=== PATIENT | female | born 1980 ===

== ENCOUNTER 2018-03-30 04:36 | Inpatient (IN) | payer MEDICAID ==
--- NOTE | 2018-03-30 04:53 | C.PDOC ---
History Of Present Illness 37 year old female with PMHx of chronic alcoholism is brought to the ED c/o chest pain. Patient states her last drink was a few hours ago prior to arrival. Patient is also c/o 2 episodes of vomiting. Patient appears anxious, shaking while in the ED. Patient denies abdominal pain, SOB, palpitations, fever, chills , diarrhea, rash. Time Seen by Provider: 03/30/18 04:46 Chief Complaint (Nursing): Chest Pain History Per: Patient History/Exam Limitations: no limitations Onset/Duration Of Symptoms: Hrs Current Symptoms Are (Timing): Still Present Quality: "Pain" Modifying Factors: None Exacerbating Factors: None Alleviating Factors: None Recent travel outside of the [place]: No Additional History Per: Patient Past Medical History Reviewed: Historical Data, Nursing Documentation, Vital Signs Vital Signs: Last Vital Signs Temp 98.5 F 03/30/18 04:48 Pulse 104 H 03/30/18 06:52 Resp 20 03/30/18 06:52 BP 105/78 03/30/18 06:52 Pulse Ox 100 03/30/18 06:52 - Medical History PMH: No Chronic Diseases Surgical History: No Surg Hx Family History: States: Unknown Family Hx - Social History Hx Tobacco Use: No Hx Alcohol Use: No Hx Substance Use: No Review Of Systems Constitutional: Negative for: Fever, Chills Cardiovascular: Positive for: Chest Pain Respiratory: Negative for: Shortness of Breath Gastrointestinal: Positive for: Vomiting, Abdominal Pain. Negative for: Diarrhea Skin: Negative for: Rash Neurological: Negative for: Weakness, Numbness Physical Exam - Physical Exam Appears: Non-toxic, Chronically Ill (anxious, AOB) Skin: Normal Color, Warm, Dry Head: Atraumatic, Normacephalic Eye(s): bilateral: Normal Inspection Oral Mucosa: Moist Neck: Normal ROM, Supple Chest: Symmetrical Cardiovascular: Rhythm Regular Respiratory: Normal Breath Sounds, No Rales, No Rhonchi, No Wheezing Gastrointestinal/Abdominal: Soft, No Tenderness, No Guarding, No Rebound Extremity: Normal ROM, No Tenderness, No Swelling Neurological/Psych: Oriented x3, Normal Speech, Other (hand tremors) Gait: Steady ED Course And Treatment - Laboratory Results Result Diagrams: 03/30/18 05:19 03/30/18 05:19 ECG: Interpreted By Me ECG Rhythm: Sinus Tachycardia (108 ), Nonspecific Changes O2 Sat by Pulse Oximetry: 98 (ON RA) Pulse Ox Interpretation: Normal Progress Note: Plan: - EKG. - Labs. - CXR. - Ativan 1 mg IVP. Pt now no longer with chest pain, states i feel tired. alc 211- pending sobriety. - IV fluids. - Zofran 4 mg IVP Disposition - Disposition Referrals: Non [facility] Provider, [Primary Care Provider] - Disposition Time: 07:00 Condition: STABLE Forms: [employer] (Austrian) - Clinical Impression Clinical Impression: Chest pain, Alcohol abuse - PA / REHABILITATION PROGRAM COORDINATOR / Resident Statement MD/DO has reviewed & agrees with the documentation as recorded. - Scribe Statement The provider has reviewed the documentation as recorded by the Scribe Orlando Aguilar All medical record entries made by the Scribe were at my direction and personally dictated by me. I have reviewed the chart and agree that the record accurately reflects my personal performance of the history, physical exam, medical decision making, and the department course for this patient. I have also personally directed, reviewed, and agree with the discharge instructions and disposition. Physician Patient Turnover Patient Signed Over To: Aubree Jackson Handoff Comments: pending sobriety
[2018-03-30] MEDS ORDERED: Sodium Chloride 0.9% 1,000 ML IV ONE ×2 (05:15→09:17)
[2018-03-30 05:26] LABS: HEMOGLOBIN 11.3 g/dL (11.0-16.0); MONO # 0.5 K/uL (0.0-0.8); NRBC % 0.1 % (0.0-2.0)
[2018-03-30] MEDS ORDERED: Sodium Chloride 0.9% 1,000 ML ONE ×2 (05:31→09:28)
[2018-03-30 05:43] LABS: ALB/GLOB RATIO 1.1 (1.0-2.1); ALBUMIN 4.5 g/dL (3.5-5.0); ALT/SGPT 49 U/L (9-52); AST/SGOT 127 U/L (14-36); BLOOD UREA NITROGEN 3 mg/dL (7-17); CALCIUM 9.3 mg/dl (8.6-10.4); GFR AFRICAN-AMERICAN > 60; GFR NON-AFRICAN AMERICAN > 60; LIPASE 177 U/L (23-300)
[2018-03-30 05:45] LABS: BASO # 0.3 K/uL (0.0-0.2); LYMPH # 3.3 K/uL (1.0-4.3); MEAN CORPUSCULAR HEMOGLOBIN 26.7 pg (27.0-31.0); MEAN PLATELET VOLUME 8.9 fL (7.2-11.7)
[2018-03-30 06:05] LABS: EOS % 11.4 % (0.0-4.0); LYMPH % 38.7 % (20.0-40.0); MEAN CELL VOLUME 82.5 fL (81.0-99.0); MEAN CORPUSCULAR HGB CONC 32.4 g/dL (33.0-37.0); MONO % 6.2 % (0.0-10.0); NEUT # 3.5 K/uL (1.8-7.0); NEUT % 40.7 % (50.0-75.0); RBC 4.22 Mil/uL (3.80-5.20); RED CELL DISTRIBUTION WIDTH 19.8 % (11.5-14.5); WHITE BLOOD COUNT 8.6 K/uL (4.8-10.8)
--- NOTE | 2018-03-30 10:49 | RAD ---
PROCEDURE: CHEST RADIOGRAPH, 1 VIEW HISTORY: chest pain COMPARISON: None available. FINDINGS: LUNGS: No acute pulmonary disease appreciable bilaterally. PLEURA: No pneumothorax or pleural fluid seen. CARDIOVASCULAR: From technique likely accentuates cardiac silhouette though an element cardiac enlargement is difficult to completely exclude. No pulmonary vascular congestion. OSSEOUS STRUCTURES: No significant abnormalities. VISUALIZED UPPER ABDOMEN: Normal. OTHER FINDINGS: None. IMPRESSION: No acute infiltrate, pleural or pericardial effusion or pneumothorax bilaterally. Cardiomegaly not completely excluded given frontal technique. No pulmonary vascular congestion.
[2018-03-30 11:36] LABS: HCG,QUALITATIVE URINE NEGATIVE (NEGATIVE)
[2018-03-30 11:42] LABS: SQUAMOUS EPITHIAL 1 /hpf (0-5); URINE BILIRUBIN NEGATIVE (NEGATIVE); URINE BLOOD NEGATIVE (NEGATIVE); URINE CLARITY Clear (Clear); URINE COLOR Yellow (YELLOW); URINE GLUCOSE (UA) NORMAL (Normal); URINE LEUKOCYTE ESTERASE NEG Leu/uL (Negative); URINE PROTEIN NEGATIVE (NEGATIVE); URINE UROBILINOGEN NORMAL mg/dL (0.2-1.0)
[2018-03-30 12:20] LABS: BARBITURATES, UR NEGATIVE (NEGATIVE); BENZODIAZEPINES, UR NEGATIVE (NEGATIVE); OPIATES, UR NEGATIVE (NEGATIVE); PHENCYCLIDINE, UR NEGATIVE (NEGATIVE)
--- NOTE | 2018-03-30 13:56 | PCM.BM ---
<Alejandra Ding - Last Filed: 03/30/18 13:53> Treatment Plan Problems - Problems identified on initial assessmt Potential for alcohol withdrawal Date Initiated: 03/30/18 Time Initiated: 13:55 Assessment reference: NA Treatment assets and liabiliti Patient Assests: ADL independent, good support system, negotiates basic needs Patient Liabilities: financial problems, relationship conflicts, substance abuse - Milieu Protocol Maintain good personal hygiene: every shift Encourage regular showers, every shift Remind patient to perform daily oral care Maintain personal safety: every shift Educate patient to report safety concerns to staff, every shift Monitor environment for contraband/sharps Medication safety: Monitor for expected outcome, potential side effects: every shift, Assess barriers to learning: every shift, Assess readiness for medication education: every shift <Samy Hidalgo - Last Filed: 03/30/18 14:54> - Diagnosis (1) Alcohol use disorder, severe, dependence Status: Acute Interventions: 03/30/18 14:54 * Assess 7x/week regarding severity of withdrawal * Educate regarding risks, benefits, side effects and alternatives of medications * Use Motivational Interviewing for abstinence * Use CBT for relapse prevention * Medication management for withdrawal symptoms * Encourage medication assisted treatment *
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
[2018-03-30] MEDS: Multiple Vitamins Tab PO SCH (14:44)
--- NOTE | 2018-03-31 07:05 | PCM.PYCHPN ---
Psychiatric Progress Note - Psychiatric Progress Note Patient seen today, length of contact: 15 min Patient Chief Complaint: I'm in a lot of pain.' Problems Identified/Issues Discussed: Patient seen and evaluated, chart reviewed and discussed with the nurse. Patient still reports withdrawal symptoms including nausea, cramps, shakes and headaches. She reports neuropathy pain in both hands and feet. She reports anxiety and irritability but denies any suicidal ideation or homicidal ideation She denies any auditory or visual hallucinations, or any psychotic symptoms. She is tolerating the withdrawal medications and denies any side effects. Supportive therapy and psychoeducation were given. Medication Change: Yes (Ativan taper) Medical Record Reviewed: Yes Mental Status Examination - Cognitive Function Orientation: Person, Place, Situation, Time Memory: Intact Attention: WNL Concentration: Poor Association: WNL Fund of Knowledge: Poor - Mood Mood: Anxious - Affect Affect: Constricted - Speech Speech: Soft - Formal Thought Process Formal Thought Process: No Impairment - Suicidal Ideation Suicidal Ideation: No - Homicidal Ideation Homicidal Ideation: No Goal/Treatment Plan - Goal/Treatment Plan Need for Continued Stay: Severe depression anxiety, Severe functional impairment Progress Toward Problem(s) and Goals/Treatment Plan: Alcohol withdrawal Alcohol use d/o -severe Taper with Ativan Gabapentin for augmentation and for neuropathy As needed medications All risks, benefits and alternatives of the meds discussed, and the pt agreed and understood. Attend groups and activities Supportive therapy and psychoeducation [place] for abstinence CBT for relapse prevention Encourage MAT Refer to rehab or IOP, and self-help groups Smoking cessation with [place] Nicotine patch if needed - Smoking Cessation Smoking Cessation Initiated: No
[2018-03-31] MEDS: Multiple Vitamins Tab PO SCH (11:55)
[2018-03-31] MEDS: Metoprolol Succinate 25 mg XL Tab PO SCH (12:05)
[2018-03-31] MEDS ORDERED: guaiFENesin DM 200 mg-20 mg/10 ml UD PO PRN (13:51)
[2018-04-01] MEDS: Albuterol HFA 90 mcg/actuation (8 g) INH PRN ×2 (06:47→19:33)
[2018-04-01] MEDS: Multiple Vitamins Tab PO SCH (09:29)
[2018-04-01] MEDS: Metoprolol Succinate 25 mg XL Tab PO SCH (09:50)
--- NOTE | 2018-04-01 16:19 | PCM.PYCHPN ---
Psychiatric Progress Note - Psychiatric Progress Note Patient seen today, length of contact: 15 min Patient Chief Complaint: I'm feeling anxious.' Problems Identified/Issues Discussed: Patient seen and evaluated, chart reviewed and discussed with the nurse. She reports neuropathy pain in both hands and feet. She is asking to increase gabapentin. Patient still reports withdrawal symptoms including nausea, cramps, shakes and headaches. She reports anxiety and irritability but denies any suicidal ideation or homicidal ideation She denies any auditory or visual hallucinations, or any psychotic symptoms. She is tolerating the withdrawal medications and denies any side effects. Supportive therapy and psychoeducation were given. Medication Change: Yes (Ativan taper) Medical Record Reviewed: Yes Mental Status Examination - Cognitive Function Orientation: Person, Place, Situation, Time Memory: Intact Attention: WNL Concentration: Poor Association: WNL Fund of Knowledge: Poor - Mood Mood: Anxious - Affect Affect: Constricted - Speech Speech: Soft - Formal Thought Process Formal Thought Process: No Impairment - Suicidal Ideation Suicidal Ideation: No - Homicidal Ideation Homicidal Ideation: No Goal/Treatment Plan - Goal/Treatment Plan Need for Continued Stay: Severe depression anxiety, Severe functional impairment Progress Toward Problem(s) and Goals/Treatment Plan: Alcohol withdrawal Alcohol use d/o -severe Taper with Ativan Gabapentin for augmentation and for neuropathy As needed medications All risks, benefits and alternatives of the meds discussed, and the pt agreed and understood. Attend groups and activities Supportive therapy and psychoeducation [place] for abstinence CBT for relapse prevention Encourage MAT Refer to rehab or IOP, and self-help groups Smoking cessation with [place] Nicotine patch if needed - Smoking Cessation Smoking Cessation Initiated: No
[2018-04-01] MEDS ORDERED: Vitamins A & D Oint UD Foilpak EXT PRN (17:15)
--- NOTE | 2018-04-02 09:09 | PCM.PYCHPN ---
Psychiatric Progress Note - Psychiatric Progress Note Patient seen today, length of contact: 15 min Patient Chief Complaint: I'm feeling anxious.' Problems Identified/Issues Discussed: Patient seen and evaluated, chart reviewed and discussed with the nurse. She reports neuropathy pain in both hands and feet. She is asking to increase gabapentin. Patient still reports withdrawal symptoms including nausea, cramps, shakes and headaches. She reports anxiety and irritability but denies any suicidal ideation or homicidal ideation She denies any auditory or visual hallucinations, or any psychotic symptoms. She is tolerating the withdrawal medications and denies any side effects. Supportive therapy and psychoeducation were given. Medication Change: Yes (Ativan taper) Medical Record Reviewed: Yes Mental Status Examination - Cognitive Function Orientation: Person, Place, Situation, Time Memory: Intact Attention: WNL Concentration: Poor Association: WNL Fund of Knowledge: Poor - Mood Mood: Anxious - Affect Affect: Constricted - Speech Speech: Soft - Formal Thought Process Formal Thought Process: No Impairment - Suicidal Ideation Suicidal Ideation: No - Homicidal Ideation Homicidal Ideation: No Goal/Treatment Plan - Goal/Treatment Plan Need for Continued Stay: Severe depression anxiety, Severe functional impairment Progress Toward Problem(s) and Goals/Treatment Plan: Alcohol withdrawal Alcohol use d/o -severe Taper with Ativan Gabapentin for augmentation and for neuropathy As needed medications All risks, benefits and alternatives of the meds discussed, and the pt agreed and understood. Attend groups and activities Supportive therapy and psychoeducation [place] for abstinence CBT for relapse prevention Encourage MAT Refer to rehab or IOP, and self-help groups Smoking cessation with [place] Nicotine patch if needed
[2018-04-02] MEDS: Multiple Vitamins Tab PO SCH (10:33)
[2018-04-02] MEDS: Metoprolol Succinate 25 mg XL Tab PO SCH (10:34)
[2018-04-02] MEDS: Albuterol HFA 90 mcg/actuation (8 g) INH PRN (10:37)
[2018-04-03] MEDS: Metoprolol Succinate 25 mg XL Tab PO SCH (09:21)
[2018-04-03] MEDS: Multiple Vitamins Tab PO SCH (09:21)
--- NOTE | 2018-04-03 12:23 | PCM.PYCHPN ---
Psychiatric Progress Note - Psychiatric Progress Note Patient seen today, length of contact: 15 min Patient Chief Complaint: "I have neuropathic pain" Problems Identified/Issues Discussed: The pt is seen, chart reviewed, case discussed with staff. The pt is compliant with medications and reports no side-effects. Symptoms are improving but needs more time to stabilize. After care discussed, support and psychoeducation given. She wants to attend outpt program She also reported depressive sxs Medication Change: Yes (detox changes daily) Medical Record Reviewed: Yes Mental Status Examination - Cognitive Function Orientation: Person, Place, Situation, Time Memory: Intact Attention: WNL Concentration: Poor Association: WNL Fund of Knowledge: Poor - Mood Mood: Anxious - Affect Affect: Constricted - Speech Speech: Soft - Formal Thought Process Formal Thought Process: No Impairment - Suicidal Ideation Suicidal Ideation: No - Homicidal Ideation Homicidal Ideation: No Goal/Treatment Plan - Goal/Treatment Plan Need for Continued Stay: Severe depression anxiety, Discharge may exacerbated symptoms, Severe functional impairment Progress Toward Problem(s) and Goals/Treatment Plan: Taper with Ativan Gabapentin for augmentation and for neuropathy Cymbalta for depression, anxiety and neuropathic pain As needed medications All risks, benefits and alternatives of the meds discussed, and the pt agreed and understood. Attend groups and activities Supportive therapy and psychoeducation [place] for abstinence CBT for relapse prevention Encourage MAT Refer to rehab or IOP, and self-help groups Smoking cessation with [place] Nicotine patch if needed
--- NOTE | 2018-04-03 14:38 | CARD ---
APPROVED REPORT EKG Measurement Heart [id number] <Conclusion> Sinus tachycardia Otherwise normal ECG
[2018-04-03] MEDS: Albuterol HFA 90 mcg/actuation (8 g) INH PRN (19:55)
[2018-04-03 22:19] VITALS: O2SAT 95
[2018-04-04 06:19] VITALS: RESP 18
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
[2018-04-04 09:15] VITALS: TEMP 98.7
[2018-04-04] MEDS: Multiple Vitamins Tab PO SCH (10:38)
[2018-04-04] MEDS: Metoprolol Succinate 25 mg XL Tab PO SCH (10:41)
[2018-04-04 11:11] VITALS: BP 115/83; PULSE 97
== END 2018-04-04 11:48 | disposition home or self-care (01) | DRG 751 ==
LOC: SUPCPDRO 04:36 → C.ER 04:36 → C.7D 12:58
PROVIDERS: ADMIT Psychiatry & Neurology Psychiatry; ATTEND Psychiatry & Neurology Psychiatry
PROC: HZ2ZZZZ Detoxification Services for Substance Abuse Treatment (ICD-10-PCS; principal; 2018-03-30)
PROC: HZ59ZZZ Individual Psychotherapy for Substance Abuse Treatment, Supportive (ICD-10-PCS; 2018-03-30)
PROC: HZ46ZZZ Group Counseling for Substance Abuse Treatment, Psychoeducation (ICD-10-PCS; 2018-03-30)
DX: F10.230 Alcohol dependence with withdrawal, uncomplicated (principal); G62.1 Alcoholic polyneuropathy; Y90.7 Blood alcohol level of 200-239 mg/100 ml; F32.9 Major depressive disorder, single episode, unspecified; F17.210 Nicotine dependence, cigarettes, uncomplicated; F41.9 Anxiety disorder, unspecified; I10 Essential (primary) hypertension; Z62.810 Personal history of physical and sexual abuse in childhood; Z91.410 Personal history of adult physical and sexual abuse